=== PATIENT | female | born 1950 | race Two or more races ===

== ENCOUNTER 2017-05-28 20:08 | Inpatient (IN) | payer MEDICARE, MEDICAID ==
[~2017-05-28] VITALS: Ht 157.5 cm; Wt 68.9 kg
[2017-05-28 21:00] VITALS: BP 150/91
[2017-05-28] MEDS ORDERED: ACETAMINOPHEN 325 MG TABLET PO PRN (21:00)
[2017-05-28] MEDS ORDERED: MAGNESIUM HYDROXIDE 30 ML UDC PO PRN (21:00)
[2017-05-28] MEDS ORDERED: clonazePAM 0.5 MG TABLET PO PRN (21:00)
--- NOTE | 2017-05-28 21:10 | NUR ---
ADMISSION NOTES ADMITTED THIS 66 Y/O FEMALE PATIENT DIRECT ADMIT FROM [facility]. PT IS ON 5150 HOLD FOR DTS. PSYCH DX OF SCHIZOPRENIA. MEDICAL DX OF HTN, DIABETES, ANGIOPLASTY, LEFT BREAST CANCER. PER HOLD PT HAS BEEN HEARING VOICES TELLING HER THAT THEY WILL KILL HER. PATIENT HAS ALSO BEEN HAVING VISUAL HALLUCINATIONS. PT DENIES ANY ALCOHOL OR DRUG ABUSE. PT STATED "I HAVEN'T BEEN ABLE TO SLEEP BECAUSE SOMEONE KEEPS TRYING TO BREAK INTO MY HOUSE AND MY DOCTOR TOLD ME TO GO BACK TO THE HOSPITAL IF I FELT THIS WAY AGAIN". PT STATED THAT SHE DOES NOT FEEL SAFE TO GO HOME AND [facility]. PT HAS HISTORY OF SCHIZOAFFECTIVE D/O. UPON FACE TO FACE ASSESSMENT PATIENT IS A&O X2-3, DELUSIONAL, PARANOID, ANXIOUS, V/S WNL. NO ACUTE RESPIRATORY DISTRESS. PT REFUSED TO SIGN CONSENT FORMS. PSYCH DR. ANDERSON. MEDICAL DR. MICHEL BOTH AWARE AND NOTIFIED OF THE ADMISSION. SKIN/BODY CHECK DONE. SKIN CLEAR AND INTACT. MRSA SWAB DONE. BELONGINGS AND CONTRABAND CHECKED AND PLACED IN THE SAFE CABINET. PATIENT RIGHT HAND BOOK GIVEN AND EXPLAINED TO THE PT. ALL NEEDS ATTENDED AND ANTICIPATED. WILL CONTINUE TO MONITOR FOR SAFETY AND BEHAVIOR.
[2017-05-28] MEDS ORDERED: ASPI81TA2 PO (21:23)
[2017-05-28] MEDS ORDERED: LEVO500T15 PO (21:23)
[2017-05-28] MEDS ORDERED: VIT500LI PO (21:23)
[2017-05-28] MEDS ORDERED: SITA50TA PO (21:23)
[2017-05-28] MEDS ORDERED: ATOR10TA PO (21:23)
[2017-05-28] MEDS ORDERED: ATEN50TA PO (21:23)
[2017-05-28] MEDS ORDERED: VIT1TABL69 PO (21:23)
[2017-05-28] MEDS: MAG HYDROX/AL HYDROX/SIMETH 30 ML UDC PO PRN (22:51)
[2017-05-28] MEDS ORDERED: ATORVASTATIN 10 MG TABLET ONE (22:59)
[2017-05-28] MEDS: ATORVASTATIN 10 MG TABLET PO SCH (23:00)
[2017-05-29 00:49] VITALS: BP 150/91
[2017-05-29] MEDS ORDERED: TEMAZEPAM 7.5 MG CAPSULE ONE (01:23)
[2017-05-29] MEDS ORDERED: clonazePAM 0.5 MG TABLET ONE (01:27)
[2017-05-29] MEDS: TEMAZEPAM 7.5 MG CAPSULE PO PRN (01:29)
[2017-05-29] MEDS ORDERED: DEXTROSE 50%-WATER 50 ML DISP.SYRIN IV PRN (03:30)
[2017-05-29 06:42] LABS: BASOPHILS % (AUTO) 0.6 % (0.0-2.0); EOSINOPHILS # (AUTO) 0.1 /CMM (0.0-0.7); EOSINOPHILS % (AUTO) 1.4 % (0.0-6.0); HEMATOCRIT 35 % (33-45); LYMPHOCYTES # (AUTO) 1.8 /CMM (0.8-4.8); LYMPHOCYTES % (AUTO) 39.4 % (20.0-44.0); MEAN CORPUSCULAR HEMOGLOBIN 24 PG (26.0-33.0); MEAN CORPUSCULAR HGB CONC 32 g/dl (31.0-36.0); MEAN CORPUSCULAR VOLUME 75 fL (82-100); MONOCYTES # (AUTO) 0.4 /CMM (0.1-1.30); MONOCYTES % (AUTO) 7.7 % (2.0-12.0); NEUTROPHILS # (AUTO) 2.3 /CMM (1.8-8.9); NEUTROPHILS % (AUTO) 50.9 % (43.0-81.0); PLATELET COUNT (AUTO) 170 /CMM (150-450); RDW COEFFICIENT OF VARIATION 28.2 (11.5-15.0); RED BLOOD CELL COUNT(AUTO) 4.59 MIL/uL (4.0-5.2); WHITE BLOOD COUNT (AUTO) 4.6 K/uL (4.3-11.0)
[2017-05-29 06:59] LABS: ALBUMIN 3.2 g/dL (3.4-5.0); BILIRUBIN,TOTAL 0.2 mg/dL (0.2-1.0); CALCIUM, SERUM 8.9 mg/dL (8.5-10.1); CREATININE 0.9 mg/dL (0.6-1.3); POTASSIUM 4.1 mmol/L (3.5-5.1); TOTAL PROTEIN, SERUM 7.2 g/dL (6.4-8.2)
[2017-05-29] MEDS: BLOOD SUGAR DIAGNOSTIC 1 EACH STRIP IN SCH ×4 (07:36→21:02)
[2017-05-29] MEDS: INSULIN REGULAR, HUMAN 100 UNIT/ML 3 ML VIAL SQ PRN ×4 (07:55→21:53)
[2017-05-29 08:00] VITALS: BP 124/71
[2017-05-29] MEDS: ATENOLOL 50 MG TABLET PO SCH (08:12)
[2017-05-29] MEDS: CLOPIDOGREL BISULFATE 75 MG TABLET PO SCH (08:12)
[2017-05-29] MEDS: LINAGLIPTIN 5 MG TABLET PO SCH (08:12)
[2017-05-29] MEDS: GABAPENTIN 300 MG CAPSULE PO SCH (08:13)
[2017-05-29] MEDS: ASPIRIN 81 MG TAB.CHEW PO SCH (08:13)
[2017-05-29] MEDS ORDERED: SITAGLIPTIN PHOSPHATE 50 MG TABLET PO SCH (09:00)
--- NOTE | 2017-05-29 10:37 | NUR ---
Dr. Daniel came and examined the pt. and ordered to continue Lwvaquin 500 mg po daily x3 more days and ordered Protonix tab.
[2017-05-29] MEDS ORDERED: LEVOFLOXACIN (500MG) 500 MG TABLET PO SCH (11:00)
--- NOTE | 2017-05-29 14:34 | NUR ---
Initial Discharge Plan: Per patient she lives alone in her apartment at; [address] [address] / [phone]. Patient stated she does not want to go back to her home, she wants [place] out [place] the [place] because she firmly believes the mafia is after her. JADA attempted to communicate with patients sister Meliza Cristobal [phone] but the phone number is invalid. JADA will follow up with MD. ELIAS to help form a safe and proper discharge.
[2017-05-29 16:00] VITALS: BP 139/69
[2017-05-29 20:00] VITALS: BP 133/73
[2017-05-29] MEDS: risperiDONE 1 MG TABLET PO SCH (20:55)
[2017-05-29] MEDS: ATORVASTATIN 10 MG TABLET PO SCH (21:08)
[2017-05-30] MEDS: BLOOD SUGAR DIAGNOSTIC 1 EACH STRIP IN SCH ×4 (07:41→21:04)
[2017-05-30] MEDS: PANTOPRAZOLE 40 MG TABLET.DR PO SCH (07:54)
[2017-05-30] MEDS: MAG HYDROX/AL HYDROX/SIMETH 30 ML UDC PO PRN (07:54)
[2017-05-30 08:00] VITALS: BP 147/80
[2017-05-30] MEDS: INSULIN REGULAR, HUMAN 100 UNIT/ML 3 ML VIAL SQ PRN ×4 (08:36→23:00)
[2017-05-30] MEDS: risperiDONE 1 MG TABLET PO SCH ×2 (08:48→20:09)
[2017-05-30] MEDS: GABAPENTIN 300 MG CAPSULE PO SCH (08:48)
[2017-05-30] MEDS: CLOPIDOGREL BISULFATE 75 MG TABLET PO SCH (08:48)
[2017-05-30] MEDS: ASPIRIN 81 MG TAB.CHEW PO SCH (08:48)
[2017-05-30] MEDS: LINAGLIPTIN 5 MG TABLET PO SCH (08:48)
[2017-05-30] MEDS: ATENOLOL 50 MG TABLET PO SCH (08:49)
[2017-05-30] MEDS: LEVOFLOXACIN (250MG) 250 MG TABLET PO SCH (12:21)
[2017-05-30 16:00] VITALS: BP 114/67
--- NOTE | 2017-05-30 18:30 | NUR ---
and dr. dover in to see pt.outwardly expresses she is depressed.
--- NOTE | 2017-05-30 19:26 | NUR ---
GPS/RN NOTE: PATIENT AT THE NURSE'S STATION, ASKED FOR THE TELEPHONE. NO COMPLAINTS MADE. NOT IN ANY FORM OF DISCOMFORT.
[2017-05-30 20:00] VITALS: BP 119/64
--- NOTE | 2017-05-30 21:04 | NUR ---
GPS/RN NOTE: ACCUCHECK 279 MG/DL.
[2017-05-30] MEDS: ATORVASTATIN 10 MG TABLET PO SCH (21:15)
[2017-05-31] MEDS: BLOOD SUGAR DIAGNOSTIC 1 EACH STRIP IN SCH ×2 (07:56→12:08)
[2017-05-31] MEDS: INSULIN REGULAR, HUMAN 100 UNIT/ML 3 ML VIAL SQ PRN ×3 (07:58→18:23)
[2017-05-31 08:04] VITALS: BP 100/59
[2017-05-31] MEDS: CLOPIDOGREL BISULFATE 75 MG TABLET PO SCH (08:17)
[2017-05-31] MEDS: PANTOPRAZOLE 40 MG TABLET.DR PO SCH (08:17)
[2017-05-31] MEDS: risperiDONE 1 MG TABLET PO SCH ×2 (08:17→21:42)
[2017-05-31] MEDS: GABAPENTIN 300 MG CAPSULE PO SCH (08:17)
[2017-05-31] MEDS: LINAGLIPTIN 5 MG TABLET PO SCH (08:17)
[2017-05-31] MEDS: ASPIRIN 81 MG TAB.CHEW PO SCH (08:17)
[2017-05-31] MEDS: ATENOLOL 50 MG TABLET PO SCH (08:18)
[2017-05-31] MEDS: LEVOFLOXACIN (250MG) 250 MG TABLET PO SCH (11:59)
[2017-05-31] MEDS: CYANOCOBALAMIN 500 MCG TABLET PO SCH (12:00)
[2017-05-31] MEDS: ASCORBIC ACID 500 MG TABLET PO SCH (12:01)
--- NOTE | 2017-05-31 12:21 | NUR ---
GPS RN NOTE: PATIENT BS 438 MG/DL 10 UNITS REGULAR INSULIN GIVEN DR GARCIA NOTIFIED WITH ORDERS METFORMIN 500 MG PO BID AND CHANGE TO MODERATE SLITTING SCALE ,ORDER PLACED AND CARED OUT WILL CONTINUE MONITORING FOR SAFETY AND BEHAVIOR Q 15 MIN
[2017-05-31] MEDS ORDERED: DEXTROSE 50%-WATER 50 ML DISP.SYRIN IV PRN (12:30)
[2017-05-31 16:00] VITALS: BP 136/86
[2017-05-31] MEDS: METFORMIN 500 MG TABLET PO SCH (16:31)
[2017-05-31] MEDS: BLOOD SUGAR DIAGNOSTIC 1 EACH STRIP VI SCH ×2 (18:20→21:41)
[2017-05-31 20:15] VITALS: BP 150/90
[2017-05-31] MEDS: ATORVASTATIN 10 MG TABLET PO SCH (21:41)
[2017-05-31] MEDS: *INSULIN REGULAR(HUMULIN R)HUM 100 UNIT/ML VIAL SQ PRN (21:46)
[2017-06-01] MEDS: TEMAZEPAM 7.5 MG CAPSULE PO PRN (02:06)
[2017-06-01] MEDS: BLOOD SUGAR DIAGNOSTIC 1 EACH STRIP VI SCH ×4 (08:01→21:30)
[2017-06-01] MEDS: INSULIN REGULAR, HUMAN 100 UNIT/ML 3 ML VIAL SQ PRN ×3 (08:02→17:10)
[2017-06-01 08:28] VITALS: BP 127/72
[2017-06-01] MEDS: ATENOLOL 50 MG TABLET PO SCH (08:49)
[2017-06-01] MEDS: VIT B CMPLX 3/FA/VIT C/BIOTIN 1 TAB TABLET PO SCH (08:50)
[2017-06-01] MEDS: PANTOPRAZOLE 40 MG TABLET.DR PO SCH (08:50)
[2017-06-01] MEDS: ASCORBIC ACID 500 MG TABLET PO SCH (08:50)
[2017-06-01] MEDS: METFORMIN 500 MG TABLET PO SCH ×2 (08:50→16:04)
[2017-06-01] MEDS: ASPIRIN 81 MG TAB.CHEW PO SCH (08:50)
[2017-06-01] MEDS ORDERED: ASCORBIC ACID 500 MG TABLET PO SCH (09:00)
[2017-06-01] MEDS: GABAPENTIN 300 MG CAPSULE PO SCH (09:08)
[2017-06-01] MEDS: LINAGLIPTIN 5 MG TABLET PO SCH (09:08)
[2017-06-01] MEDS: risperiDONE 1 MG TABLET PO SCH ×2 (09:08→21:25)
[2017-06-01] MEDS: CLOPIDOGREL BISULFATE 75 MG TABLET PO SCH (09:08)
[2017-06-01] MEDS: CYANOCOBALAMIN 500 MCG TABLET PO SCH (09:10)
--- NOTE | 2017-06-01 10:15 | NUR ---
GPS RN NOTE: DR RADHA GUTIERREZ T.O ORDER LANTUS 30 UNITS AT THE BED TIME ,ORDER PLACED AND CARED OUT.
[2017-06-01] MEDS: LEVOFLOXACIN (250MG) 250 MG TABLET PO SCH (10:58)
[2017-06-01 16:10] VITALS: BP 109/70
[2017-06-01 20:02] VITALS: BP 106/58
[2017-06-01] MEDS: ATORVASTATIN 10 MG TABLET PO SCH (21:25)
[2017-06-01] MEDS: INSULIN DETEMIR 100 UNIT/ML CARTRIDGE SQ SCH (21:28)
[2017-06-01] MEDS: *INSULIN REGULAR(HUMULIN R)HUM 100 UNIT/ML VIAL SQ PRN (21:28)
[2017-06-02] MEDS: BLOOD SUGAR DIAGNOSTIC 1 EACH STRIP VI SCH ×4 (07:43→21:38)
[2017-06-02 08:00] VITALS: BP 150/96
--- NOTE | 2017-06-02 08:00 | NUR ---
QUIET AND PARTICIPATES WHEN ASKED QUESTIONS.
[2017-06-02] MEDS: INSULIN REGULAR, HUMAN 100 UNIT/ML 3 ML VIAL SQ PRN ×4 (08:23→21:51)
[2017-06-02] MEDS: CYANOCOBALAMIN 500 MCG TABLET PO SCH (09:03)
[2017-06-02] MEDS: ASPIRIN 81 MG TAB.CHEW PO SCH (09:03)
[2017-06-02] MEDS: METFORMIN 500 MG TABLET PO SCH ×2 (09:03→17:37)
[2017-06-02] MEDS: ASCORBIC ACID 500 MG TABLET PO SCH (09:03)
[2017-06-02] MEDS: VIT B CMPLX 3/FA/VIT C/BIOTIN 1 TAB TABLET PO SCH (09:03)
[2017-06-02] MEDS: CLOPIDOGREL BISULFATE 75 MG TABLET PO SCH (09:03)
[2017-06-02] MEDS: ATENOLOL 50 MG TABLET PO SCH (09:04)
[2017-06-02] MEDS: PANTOPRAZOLE 40 MG TABLET.DR PO SCH (09:04)
[2017-06-02] MEDS: GABAPENTIN 300 MG CAPSULE PO SCH (09:04)
[2017-06-02] MEDS: LINAGLIPTIN 5 MG TABLET PO SCH (09:12)
[2017-06-02] MEDS: risperiDONE 1 MG TABLET PO SCH ×2 (09:12→20:27)
[2017-06-02] MEDS: LEVOFLOXACIN (250MG) 250 MG TABLET PO SCH (11:39)
--- NOTE | 2017-06-02 14:30 | NUR ---
DR. MICHEL IN TO SEE PT.
[2017-06-02] MEDS ORDERED: hydrALAZINE HCL 25 MG TABLET PO PRN (15:00)
--- NOTE | 2017-06-02 15:10 | NUR ---
PT. VERBALIZED HEARING VOICES REGARDING SOMEONE TRYING TO KILL HER THAT,S IN THE [place].
[2017-06-02 15:45] VITALS: BP 112/63
--- NOTE | 2017-06-02 16:30 | NUR ---
DR. HOYT IN TO SEE PT.
[2017-06-02 20:07] VITALS: BP 121/72
[2017-06-02] MEDS: DIVALPROEX SODIUM 500 MG TABLET.DR PO SCH (20:27)
[2017-06-02] MEDS: ATORVASTATIN 10 MG TABLET PO SCH (21:38)
[2017-06-02] MEDS: INSULIN DETEMIR 100 UNIT/ML CARTRIDGE SQ SCH (21:52)
[2017-06-03 06:39] LABS: BASOPHILS % (AUTO) 0.4 % (0.0-2.0); EOSINOPHILS # (AUTO) 0.1 /CMM (0.0-0.7); EOSINOPHILS % (AUTO) 1.1 % (0.0-6.0); HEMATOCRIT 36 % (33-45); HEMOGLOBIN 11.5 g/dL (11.5-14.8); LYMPHOCYTES # (AUTO) 2.1 /CMM (0.8-4.8); LYMPHOCYTES % (AUTO) 38.3 % (20.0-44.0); MEAN CORPUSCULAR HEMOGLOBIN 24 PG (26.0-33.0); MEAN CORPUSCULAR HGB CONC 32 g/dl (31.0-36.0); MEAN CORPUSCULAR VOLUME 76 fL (82-100); MONOCYTES # (AUTO) 0.3 /CMM (0.1-1.30); MONOCYTES % (AUTO) 6.4 % (2.0-12.0); NEUTROPHILS # (AUTO) 2.9 /CMM (1.8-8.9); NEUTROPHILS % (AUTO) 53.8 % (43.0-81.0); PLATELET COUNT (AUTO) 165 /CMM (150-450); RDW COEFFICIENT OF VARIATION 27.1 (11.5-15.0); RED BLOOD CELL COUNT(AUTO) 4.77 MIL/uL (4.0-5.2); WHITE BLOOD COUNT (AUTO) 5.4 K/uL (4.3-11.0)
[2017-06-03 07:08] LABS: CALCIUM, SERUM 9.1 mg/dL (8.5-10.1); CREATININE 1.1 mg/dL (0.6-1.3); MAGNESIUM 1.9 mg/dL (1.8-2.4); PHOSPHORUS 3.4 mg/dL (2.5-4.9); POTASSIUM 4.4 mmol/L (3.5-5.1)
[2017-06-03] MEDS: BLOOD SUGAR DIAGNOSTIC 1 EACH STRIP VI SCH ×4 (08:07→22:06)
[2017-06-03] MEDS: PANTOPRAZOLE 40 MG TABLET.DR PO SCH (08:08)
[2017-06-03] MEDS: GABAPENTIN 300 MG CAPSULE PO SCH (08:08)
[2017-06-03] MEDS: CLOPIDOGREL BISULFATE 75 MG TABLET PO SCH (08:08)
[2017-06-03] MEDS: ASPIRIN 81 MG TAB.CHEW PO SCH (08:08)
[2017-06-03] MEDS: DIVALPROEX SODIUM 500 MG TABLET.DR PO SCH ×2 (08:08→22:06)
[2017-06-03] MEDS: VIT B CMPLX 3/FA/VIT C/BIOTIN 1 TAB TABLET PO SCH (08:08)
[2017-06-03] MEDS: ATENOLOL 50 MG TABLET PO SCH (08:08)
[2017-06-03] MEDS: CYANOCOBALAMIN 500 MCG TABLET PO SCH (08:08)
[2017-06-03] MEDS: risperiDONE 1 MG TABLET PO SCH ×2 (08:08→22:06)
[2017-06-03] MEDS: ASCORBIC ACID 500 MG TABLET PO SCH (08:08)
[2017-06-03] MEDS: LINAGLIPTIN 5 MG TABLET PO SCH (08:08)
[2017-06-03] MEDS: METFORMIN 500 MG TABLET PO SCH ×2 (08:08→16:59)
[2017-06-03] MEDS: INSULIN REGULAR, HUMAN 100 UNIT/ML 3 ML VIAL SQ PRN ×3 (08:13→17:10)
[2017-06-03 08:47] VITALS: BP 124/75
[2017-06-03] MEDS: LEVOFLOXACIN (250MG) 250 MG TABLET PO SCH (11:50)
--- NOTE | 2017-06-03 13:08 | NUR ---
GPS RN NOTE: PT.IN BED COMPLAINING OF NAUSEA DR MICHEL NOTIFIED NEW T.O ORDER ZOFRAN 4 MG PO Q 6 HR ORDER PLACED AND CARED OUT WILL CONTINUES TO MONITOR Q 15 MINUTES FOR SAFETY AND BEHAVIOR.
[2017-06-03] MEDS ORDERED: ONDANSETRON 4 MG TAB.RAPDIS PO PRN (13:30)
[2017-06-03 16:12] VITALS: BP 108/65
--- NOTE | 2017-06-03 16:29 | NUR ---
SW attempted to get in contact with Stitch Markerjace Zhang, . SW was given his contact by patient who wanted SW to follow up on laborer aquatic life "catching the valeriy guidry." SW left a voicemail for Detective Zhang and stated that she was seeking some clarification for patient. SW left detailed contact information.
--- NOTE | 2017-06-03 16:30 | NUR ---
SW spoke with patient who stated that she is open to going back home after discharge. However, pateint stated that she wanted a bodyguard and still has delusions of being persecuted by valeriy.
[2017-06-03 19:38] VITALS: BP 101/57
[2017-06-03] MEDS: INSULIN DETEMIR 100 UNIT/ML CARTRIDGE SQ SCH (22:00)
[2017-06-03] MEDS: ATORVASTATIN 10 MG TABLET PO SCH (22:06)
--- NOTE | 2017-06-03 22:13 | NUR ---
GPS/PIERCING ARTIST NOTES: ACCUCHECK DONE. BS NOTED AT 170. PT. REFUSED HS SLIDING SCALE COVERAGE ORDERED AND REFUSED HS DETERMIR 30UNIT SQ ORDERED. PT. STATED "170 BS, IM OK. I DONT WANT ANY INSULIN." OFFERED 3X. EXPLAINED RISK AND BENEFITS. PT. STILL REFUSED. CHARGE NURSE MADE AWARE. WILL CONTINUE TO MONITOR.
[2017-06-04] MEDS: BLOOD SUGAR DIAGNOSTIC 1 EACH STRIP VI SCH ×4 (07:44→21:33)
[2017-06-04 08:00] VITALS: BP 103/56
[2017-06-04] MEDS: INSULIN REGULAR, HUMAN 100 UNIT/ML 3 ML VIAL SQ PRN ×3 (08:20→17:58)
[2017-06-04] MEDS: GABAPENTIN 300 MG CAPSULE PO SCH (08:25)
[2017-06-04] MEDS: METFORMIN 500 MG TABLET PO SCH ×2 (08:26→16:43)
[2017-06-04] MEDS: VIT B CMPLX 3/FA/VIT C/BIOTIN 1 TAB TABLET PO SCH (08:26)
[2017-06-04] MEDS: LINAGLIPTIN 5 MG TABLET PO SCH (08:26)
[2017-06-04] MEDS: DIVALPROEX SODIUM 500 MG TABLET.DR PO SCH ×2 (08:26→21:35)
[2017-06-04] MEDS: CLOPIDOGREL BISULFATE 75 MG TABLET PO SCH (08:26)
[2017-06-04] MEDS: PANTOPRAZOLE 40 MG TABLET.DR PO SCH (08:26)
[2017-06-04] MEDS: CYANOCOBALAMIN 500 MCG TABLET PO SCH (08:26)
[2017-06-04] MEDS: risperiDONE 1 MG TABLET PO SCH ×2 (08:26→21:35)
[2017-06-04] MEDS: ASPIRIN 81 MG TAB.CHEW PO SCH (08:26)
[2017-06-04] MEDS: ASCORBIC ACID 500 MG TABLET PO SCH (08:26)
[2017-06-04] MEDS: ATENOLOL 50 MG TABLET PO SCH (08:27)
--- NOTE | 2017-06-04 08:31 | NUR ---
NEWS ANALYST-NOTES PATIENT BLOOD SUGAR WAS 214MG/DL, 6 UNITS OF R INSULIN PRN ORDER.
[2017-06-04] MEDS: LEVOFLOXACIN (250MG) 250 MG TABLET PO SCH (11:16)
--- NOTE | 2017-06-04 13:17 | NUR ---
CYBER SYSTEMS OPERATIONS SPECIALIST-NOTES PATIENT BLOOD SUGAR WAS 267 MG/DL, 9 UNITS OF R INSULIN PRN ORDER.
[2017-06-04 16:00] VITALS: BP 125/74
--- NOTE | 2017-06-04 17:59 | NUR ---
HOT CELL TECHNICIAN-NOTES PATIENT BLOOD SUGAR WAS 202 MG/DL, 6 UNITS OF R INSULIN PRN ORDER.
[2017-06-04 19:55] VITALS: BP 140/84
[2017-06-04 20:00] VITALS: BP 140/84
[2017-06-04] MEDS: INSULIN DETEMIR 100 UNIT/ML CARTRIDGE SQ SCH (21:34)
[2017-06-04] MEDS: ATORVASTATIN 10 MG TABLET PO SCH (21:35)
--- NOTE | 2017-06-05 07:22 | NUR ---
RN NOTE PT IS IN BED, AWAKE AND CALM. PT ON RA, RESPIRATIONS ARE EVEN AND UNLABORED. SAFETY MEASURES ARE IN PLACE. WILL CONTINUE TO MONITOR.
[2017-06-05] MEDS: BLOOD SUGAR DIAGNOSTIC 1 EACH STRIP VI SCH ×4 (07:30→21:24)
[2017-06-05 08:00] VITALS: BP 113/71
[2017-06-05] MEDS: VIT B CMPLX 3/FA/VIT C/BIOTIN 1 TAB TABLET PO SCH (08:41)
[2017-06-05] MEDS: LINAGLIPTIN 5 MG TABLET PO SCH (08:41)
[2017-06-05] MEDS: ASCORBIC ACID 500 MG TABLET PO SCH (08:41)
[2017-06-05] MEDS: GABAPENTIN 300 MG CAPSULE PO SCH (08:41)
[2017-06-05] MEDS: CYANOCOBALAMIN 500 MCG TABLET PO SCH (08:41)
[2017-06-05] MEDS: risperiDONE 1 MG TABLET PO SCH ×2 (08:41→22:00)
[2017-06-05] MEDS: ATENOLOL 50 MG TABLET PO SCH (08:41)
[2017-06-05] MEDS: ASPIRIN 81 MG TAB.CHEW PO SCH (08:41)
[2017-06-05] MEDS: METFORMIN 500 MG TABLET PO SCH ×2 (08:41→16:59)
[2017-06-05] MEDS: DIVALPROEX SODIUM 500 MG TABLET.DR PO SCH ×2 (08:41→22:00)
[2017-06-05] MEDS: CLOPIDOGREL BISULFATE 75 MG TABLET PO SCH (08:41)
[2017-06-05] MEDS: PANTOPRAZOLE 40 MG TABLET.DR PO SCH (08:41)
[2017-06-05] MEDS: INSULIN REGULAR, HUMAN 100 UNIT/ML 3 ML VIAL SQ PRN ×3 (08:53→17:05)
[2017-06-05] MEDS: LEVOFLOXACIN (250MG) 250 MG TABLET PO SCH (10:29)
[2017-06-05 16:00] VITALS: BP 113/68
[2017-06-05 16:12] VITALS: BP 113/68
--- NOTE | 2017-06-05 18:11 | NUR ---
RN NOTE PT IS IN BED, SLEEPING COMFORTABLY. PT COMPLIANT WITH MEDICATIONS AND TREATMENT PLAN. PT ABLE TO AMBULATE WITH MINIMUM ASSISTANCE. WILL ENDORSE TO BUSINESS OPERATIONS ANALYST RN FOR CONTINUITY OF CARE.
[2017-06-05 20:00] VITALS: BP 120/75
[2017-06-05] MEDS: ATORVASTATIN 10 MG TABLET PO SCH (22:00)
[2017-06-05] MEDS: INSULIN DETEMIR 100 UNIT/ML CARTRIDGE SQ SCH (22:09)
[2017-06-06] MEDS: BLOOD SUGAR DIAGNOSTIC 1 EACH STRIP VI SCH ×4 (07:38→23:05)
[2017-06-06] MEDS: INSULIN REGULAR, HUMAN 100 UNIT/ML 3 ML VIAL SQ PRN ×4 (07:44→23:16)
[2017-06-06 08:00] VITALS: BP 141/76
[2017-06-06] MEDS: PANTOPRAZOLE 40 MG TABLET.DR PO SCH (08:36)
[2017-06-06] MEDS: ASCORBIC ACID 500 MG TABLET PO SCH (09:07)
[2017-06-06] MEDS: GABAPENTIN 300 MG CAPSULE PO SCH (09:07)
[2017-06-06] MEDS: CLOPIDOGREL BISULFATE 75 MG TABLET PO SCH (09:07)
[2017-06-06] MEDS: risperiDONE 1 MG TABLET PO SCH ×2 (09:07→23:04)
[2017-06-06] MEDS: DIVALPROEX SODIUM 500 MG TABLET.DR PO SCH ×2 (09:07→23:04)
[2017-06-06] MEDS: METFORMIN 500 MG TABLET PO SCH ×2 (09:08→17:47)
[2017-06-06] MEDS: VIT B CMPLX 3/FA/VIT C/BIOTIN 1 TAB TABLET PO SCH (09:08)
[2017-06-06] MEDS: ASPIRIN 81 MG TAB.CHEW PO SCH (09:08)
[2017-06-06] MEDS: CYANOCOBALAMIN 500 MCG TABLET PO SCH (09:08)
[2017-06-06] MEDS: LINAGLIPTIN 5 MG TABLET PO SCH (09:08)
[2017-06-06] MEDS: ATENOLOL 50 MG TABLET PO SCH (09:08)
[2017-06-06] MEDS: LEVOFLOXACIN (250MG) 250 MG TABLET PO SCH (10:07)
[2017-06-06 16:00] VITALS: BP 114/74
[2017-06-06 20:00] VITALS: BP 117/67
--- NOTE | 2017-06-06 21:00 | NUR ---
RN NOTES PATIENT IN BED, ALERT AND ORIENTED X3, CALM AT THIS TIME, COOPERATIVE, APPROPRIATE RESPONSE TO QUESTIONS, KEPT SAFE AND COMFORTABLE, CALL LIGHT WITHIN REACH.
[2017-06-06] MEDS ORDERED: ARIPIPRAZOLE 5 MG TABLET ONE (22:01)
[2017-06-06] MEDS: ATORVASTATIN 10 MG TABLET PO SCH (23:04)
[2017-06-06] MEDS: INSULIN DETEMIR 100 UNIT/ML CARTRIDGE SQ SCH (23:15)
--- NOTE | 2017-06-07 07:02 | NUR ---
RN NOTES PATIENT IS RESTING IN BED, ALERT AND AWAKE, NO SOB, NO DISTRESS, CALM, SLEPT 6.5 HOURS, NO BEHAVIOR DISTURBANCE DURING SHIFT, COMPLIANT WITH MEDICATIONS AND ACCUCHECK
[2017-06-07 08:06] VITALS: BP 122/68
[2017-06-07] MEDS: PANTOPRAZOLE 40 MG TABLET.DR PO SCH (08:07)
[2017-06-07] MEDS: ASPIRIN 81 MG TAB.CHEW PO SCH (08:08)
[2017-06-07] MEDS: BLOOD SUGAR DIAGNOSTIC 1 EACH STRIP VI SCH ×4 (08:08→22:16)
[2017-06-07] MEDS: VIT B CMPLX 3/FA/VIT C/BIOTIN 1 TAB TABLET PO SCH (08:09)
[2017-06-07] MEDS: METFORMIN 500 MG TABLET PO SCH ×2 (08:09→16:30)
[2017-06-07] MEDS: DIVALPROEX SODIUM 500 MG TABLET.DR PO SCH ×2 (08:09→21:11)
[2017-06-07] MEDS: GABAPENTIN 300 MG CAPSULE PO SCH (08:09)
[2017-06-07] MEDS: CLOPIDOGREL BISULFATE 75 MG TABLET PO SCH (08:10)
[2017-06-07] MEDS: risperiDONE 1 MG TABLET PO SCH ×2 (08:11→21:11)
[2017-06-07] MEDS: ASCORBIC ACID 500 MG TABLET PO SCH (08:11)
[2017-06-07] MEDS: LINAGLIPTIN 5 MG TABLET PO SCH (08:11)
[2017-06-07] MEDS: CYANOCOBALAMIN 500 MCG TABLET PO SCH (08:12)
[2017-06-07] MEDS: ATENOLOL 50 MG TABLET PO SCH (08:13)
[2017-06-07] MEDS: INSULIN REGULAR, HUMAN 100 UNIT/ML 3 ML VIAL SQ PRN ×3 (08:25→16:42)
--- NOTE | 2017-06-07 08:25 | NUR ---
[id number]: BLOOD SUGAR IS 149 MG/DL AND GAVE 2 UNITS OF REGULAR INSULIN.
[2017-06-07] MEDS: LEVOFLOXACIN (250MG) 250 MG TABLET PO SCH (11:35)
[2017-06-07] MEDS: *INSULIN REGULAR(HUMULIN R)HUM 100 UNIT/ML VIAL SQ PRN ×2 (12:27→22:21)
--- NOTE | 2017-06-07 12:40 | NUR ---
[id number]: BLOOD SUGAR IS 219 MG/DL AND GAVE 6 UNITS OF REGULAR INSULIN
--- NOTE | 2017-06-07 13:00 | NUR ---
DR. MICHEL DISCONTINUE LEVAQUIN 500 MG PO Q24 HOURS SINCE PT HAS BEEN TAKING THIS MEDICATION SINCE 05/30/17.
[2017-06-07 15:40] VITALS: BP 114/66
[2017-06-07 19:56] VITALS: BP 117/65
[2017-06-07] MEDS: ATORVASTATIN 10 MG TABLET PO SCH (21:12)
[2017-06-07] MEDS: INSULIN DETEMIR 100 UNIT/ML CARTRIDGE SQ SCH (22:22)
--- NOTE | 2017-06-08 07:05 | NUR ---
RN NOTES PATIENT IN BED, RESTING COMFORTABLY, NO SOB, NO DISTRESS, NO BEHAVIOR DISTURBANCE DURING SHIFT,DENIES SI/HI AT THIS TIME
[2017-06-08] MEDS: LINAGLIPTIN 5 MG TABLET PO SCH (08:08)
[2017-06-08] MEDS: DIVALPROEX SODIUM 500 MG TABLET.DR PO SCH ×2 (08:08→22:15)
[2017-06-08] MEDS: ASPIRIN 81 MG TAB.CHEW PO SCH (08:09)
[2017-06-08] MEDS: VIT B CMPLX 3/FA/VIT C/BIOTIN 1 TAB TABLET PO SCH (08:09)
[2017-06-08] MEDS: METFORMIN 500 MG TABLET PO SCH ×2 (08:09→16:05)
[2017-06-08] MEDS: CLOPIDOGREL BISULFATE 75 MG TABLET PO SCH (08:10)
[2017-06-08] MEDS: risperiDONE 1 MG TABLET PO SCH ×2 (08:10→22:15)
[2017-06-08] MEDS: GABAPENTIN 300 MG CAPSULE PO SCH (08:10)
[2017-06-08] MEDS: ASCORBIC ACID 500 MG TABLET PO SCH (08:11)
[2017-06-08] MEDS: CYANOCOBALAMIN 500 MCG TABLET PO SCH (08:11)
[2017-06-08] MEDS: PANTOPRAZOLE 40 MG TABLET.DR PO SCH (08:11)
[2017-06-08] MEDS: BLOOD SUGAR DIAGNOSTIC 1 EACH STRIP VI SCH ×4 (08:12→21:55)
[2017-06-08] MEDS: ATENOLOL 50 MG TABLET PO SCH (08:12)
[2017-06-08] MEDS: INSULIN REGULAR, HUMAN 100 UNIT/ML 3 ML VIAL SQ PRN ×3 (08:15→16:58)
--- NOTE | 2017-06-08 08:15 | NUR ---
[id number]: BLOOD SUGAR IS 222 MG/DL AND GAVE 6 UNITS OF REGULAR INSULIN.
[2017-06-08 08:19] VITALS: BP 110/64
--- NOTE | 2017-06-08 12:55 | NUR ---
[id number]: BLOOD SUGAR IS 245 MG/DL AND GAVE 6 UNITS OF REGULAR INSULIN.
[2017-06-08 15:39] VITALS: BP 102/62
[2017-06-08 19:44] VITALS: BP 114/72
[2017-06-08] MEDS: INSULIN DETEMIR 100 UNIT/ML CARTRIDGE SQ SCH ×2 (21:00→22:19)
[2017-06-08] MEDS: ATORVASTATIN 10 MG TABLET PO SCH (22:15)
[2017-06-08] MEDS: *INSULIN REGULAR(HUMULIN R)HUM 100 UNIT/ML VIAL SQ PRN (22:21)
--- NOTE | 2017-06-08 23:00 | NUR ---
A/A /o times 4,pleasant and coopertive,Took meds without any fuss. Able to move about on her own,Will continue to monitor pt for her safety.
--- NOTE | 2017-06-09 06:18 | NUR ---
Slept most of night,no c/o.Kept safe
[2017-06-09] MEDS: PANTOPRAZOLE 40 MG TABLET.DR PO SCH (06:33)
[2017-06-09] MEDS: BLOOD SUGAR DIAGNOSTIC 1 EACH STRIP VI SCH ×2 (06:48→11:59)
[2017-06-09 08:00] VITALS: BP 111/54
[2017-06-09] MEDS: INSULIN REGULAR, HUMAN 100 UNIT/ML 3 ML VIAL SQ PRN ×2 (08:26→12:00)
--- NOTE | 2017-06-09 08:26 | NUR ---
[id number]: BLOOD SUGAR IS 238 MG/DL AND GAVE 6 UNITS OF REGULAR INSULIN
[2017-06-09] MEDS: ASCORBIC ACID 500 MG TABLET PO SCH (08:53)
[2017-06-09] MEDS: CLOPIDOGREL BISULFATE 75 MG TABLET PO SCH (08:53)
[2017-06-09] MEDS: CYANOCOBALAMIN 500 MCG TABLET PO SCH (08:53)
[2017-06-09] MEDS: DIVALPROEX SODIUM 500 MG TABLET.DR PO SCH (08:54)
[2017-06-09] MEDS: GABAPENTIN 300 MG CAPSULE PO SCH (08:54)
[2017-06-09] MEDS: VIT B CMPLX 3/FA/VIT C/BIOTIN 1 TAB TABLET PO SCH (08:54)
[2017-06-09] MEDS: METFORMIN 500 MG TABLET PO SCH (08:54)
[2017-06-09] MEDS: ASPIRIN 81 MG TAB.CHEW PO SCH (08:54)
[2017-06-09] MEDS: risperiDONE 1 MG TABLET PO SCH (08:55)
[2017-06-09] MEDS: LINAGLIPTIN 5 MG TABLET PO SCH (08:55)
[2017-06-09 08:57] VITALS: BP 111/54
[2017-06-09] MEDS: ATENOLOL 50 MG TABLET PO SCH (08:57)
--- NOTE | 2017-06-09 12:00 | NUR ---
[id number]: BLOOD SUGAR IS 257 MG/DL AND GAVE 9 UNITS OF REGULAR INSULIN.
--- NOTE | 2017-06-09 12:13 | NUR ---
Discharge Note Patient will be discharged home to [address] [address] / [phone] via taxi. Patient does not have family to notify because her family members live out of the country. Patient stated that she feels comfortable going back home. Patient will follow up with her emts Dr. Alegria [address] [phone] on 06/18/17 at noon. Patient does not have a psychiatrist, but was provided referrals to see one at [facility] [address] [place] [phone] . This facility is close to patients home and will be an easy commute. plier worker also faxed over home health information to Preethi from [facility] / fax number [phone]. SW received a call from Preethi who confirmed that the fax was been received and stated that they will be calling patient around 3pm. Patient is not a smoker and does not use drugs/alcohol.
--- NOTE | 2017-06-09 13:15 | NUR ---
[id number]: PT IS 66 YEARS OLD FEMALE ALERT AND ORIENTED X3. DISCHARGE TO HOME AT [address] [place] [address]. [id number] IN STABLE CONDITION. COMPLAINT WITH MEDICATIONS, COOPERATIVE WITH TREATMENT PLANS. PT DENIES SI/HI AND INSTRUCTED TO GO TO THE CLOSEST ER IF DEVELOPING SI/HI. BEHAVIOR IMPROVED, PSYCHIATRIC TX PLANS MET, MEDICAL TX PLANS DEFERRED FOR CONTINUAL MONITORING. EDUCATED PT ABOUT AFTER CARE PLAN AND COPY PROVIDED. RETURN PERSONAL BELONGINGS TO PT. MEDICATIONS RECONCILED WITH DR. VARGAS AND DR. GARCIA. PT SIGNED ALL DISCHARGE PAPERWORK. SKIN ASSESSMENT DONE. PT LEFT VIA TAXI ACCOMPANIED BY STAFF. BAKER PIE DIDN'T GIVE STAFF THE RETURN PINK SLIP.
== END 2017-06-09 13:15 | disposition home or self-care (01) | DRG 885 ==
LOC: GPS 20:08
PROVIDERS: ADMIT Psychiatry & Neurology Psychiatry; ATTEND Psychiatry & Neurology Psychiatry
DX: F20.0 Paranoid schizophrenia (principal); E11.65 Type 2 diabetes mellitus with hyperglycemia; R45.851 Suicidal ideations; F29 Unspecified psychosis not due to a substance or known physiological condition; F32.9 Major depressive disorder, single episode, unspecified; D50.9 Iron deficiency anemia, unspecified; E78.5 Hyperlipidemia, unspecified; I10 Essential (primary) hypertension; I25.10 Atherosclerotic heart disease of native coronary artery without angina pectoris
CPT/HCPCS: 36415; 80048-TC; 80053-TC; 80061-TC; 80164-TC; 82962-TC; 83735-TC; 84100-TC; 85025-TC; 87081-TC; J1815; Q0162